=== PATIENT | male | born 1970 | race Two or more races ===

== ENCOUNTER 2025-01-10 13:08 | Inpatient (IN) | payer OTHER ==
[2025-01-10 13:51] VITALS: BMI 22.9
[2025-01-10] MEDS ORDERED: BENZOCAINE/MENTHOL (CHLORASEPTIC ) LOZENGE MM PRN (14:53)
[2025-01-10] MEDS ORDERED: LOPERAMIDE HCL 2 MG CAPSULE PO PRN (14:53)
[2025-01-10] MEDS ORDERED: MAG HYDROX/AL HYDROX/SIMETH 30 ML UNIT-DOSE CUP PO PRN (14:53)
[2025-01-10] MEDS ORDERED: BISMUTH SUBSALICYLATE 524 MG/30 ML PO PRN (14:53)
[2025-01-10] MEDS ORDERED: MAGNESIUM HYDROX 2400MG/30ML ORAL SUSPENSION 30 ML CUP PO PRN (14:53)
[2025-01-10] MEDS ORDERED: IBUPROFEN 400 MG TABLET (FP) PO PRN (14:53)
[2025-01-10] MEDS ORDERED: BENZONATATE 200 MG CAPSULE PO PRN (14:53)
[2025-01-10] MEDS ORDERED: guaiFENesin 600 MG TABLET.ER (FP) PO PRN (14:53)
[2025-01-10] MEDS ORDERED: ONDANSETRON *ODT* 4 MG TABLET SL PRN (14:53)
[2025-01-10] MEDS ORDERED: NALOXONE (NARCAN) HCL 4 MG/0.1 ML SPRAY NS PRN (14:53)
[2025-01-10] MEDS ORDERED: POLYETHYLENE GLYCOL (HEALTHYLAX) 3350 17 GM PACKET PO PRN (14:53)
[2025-01-10] MEDS ORDERED: DICYCLOMINE HCL 10 MG CAPSULE PO PRN (14:53)
[2025-01-10] MEDS ORDERED: METOPROLOL TARTRATE 25 MG TABLET (FP) ONE (15:39)
[2025-01-10] MEDS: METOPROLOL TARTRATE 25 MG TABLET (FP) PO ONE ×2 (15:42→22:13)
[2025-01-10] MEDS: amLODIPine BESYLATE 5 MG TABLET (FP) PO ONE (18:12)
[2025-01-10] MEDS: METHOCARBAMOL 500 MG TABLET PO PRN (18:12)
[2025-01-10] MEDS: THIAMINE 100 MG TABLET PO SCH (22:13)
[2025-01-10] MEDS: MELATONIN 5 MG TABLETS PO SCH (22:13)
[2025-01-10 23:53] VITALS: RESP 16
[2025-01-11] MEDS: PRENATAL VITAMINS W/ FOLIC ACID TABLET (FP) PO SCH (09:59)
[2025-01-11] MEDS: ACETAMINOPHEN 325 MG TABLET (FP) PO PRN (09:59)
[2025-01-11 10:02] VITALS: BP 116/95; PULSE 84; TEMP 96.8
[2025-01-11 12:10] LABS: HEMATOCRIT 40.4 % (40.1-51.0); HEMOGLOBIN 13.2 g/dL (13.7-17.5); MCHC 32.7 g/dl (32.3-36.5); MEAN CELL VOLUME 93.3 fl (79.0-92.2); MEAN PLT VOLUME 10.5 fl (9.4-12.4); PLATELET COUNT 126 x10^3/uL (163-337); RDW 13.1 % (12.2-16.1)
[2025-01-11 12:16] LABS: CHLORIDE 103 mmol/L (98-107); POTASSIUM 3.6 mmol/L (3.5-5.1); SODIUM 140 mmol/L (136-145)
[2025-01-11 12:31] LABS: BLOOD UREA NITROGEN 8.4 mg/dL (7-18)
[2025-01-11 12:32] LABS: ALBUMIN 3.4 g/dl (3.4-5.0); CALCIUM 8.9 mg/dL (8.5-10.1); GLUCOSE,RANDOM 81 mg/dL (74-106)
[2025-01-11 12:33] LABS: ANION GAP 9 mmol/L (4-13); CO2 28 mmol/L (21-32)
[2025-01-11 12:35] LABS: SGPT/ALT 26 U/L (13-61)
[2025-01-11 12:36] LABS: CREATININE 0.8 mg/dL (0.55-1.3); SGOT/AST 36 U/L (15-37)
[2025-01-11 12:37] LABS: BILIRUBIN,TOTAL 1.2 mg/dL (0.2-1); TOT PROT 6.9 g/dl (6.4-8.2)
[2025-01-11 12:38] LABS: ALK PHOS 89 U/L (45-117)
[2025-01-11] MEDS: IBUPROFEN 600 MG TABLET (FP) PO PRN (13:00)
== END 2025-01-11 15:50 | disposition home or self-care (01) | DRG 775 ==
LOC: YASAS 13:08 → Y3N 15:30
PROVIDERS: ADMIT Allergy & Immunology; ATTEND Allergy & Immunology
PROC: HZ2ZZZZ Detoxification Services for Substance Abuse Treatment (ICD-10-PCS; principal; 2025-01-10)
DX: F10.20 Alcohol dependence, uncomplicated (principal); F43.10 Post-traumatic stress disorder, unspecified; I10 Essential (primary) hypertension; M54.2 Cervicalgia; M54.50 Low back pain, unspecified; G89.29 Other chronic pain; R26.89 Other abnormalities of gait and mobility; Z99.89 Dependence on other enabling machines and devices
CPT/HCPCS: 36415; 80053; 80305; 80307; 84484; 85027; 86780; 93005; 93010